=== PATIENT | female | born 1965 | race American Indian/Alaskan Native ===

== ENCOUNTER 2017-03-07 18:55 | Emergency (ER) | payer MEDICAID ==
[2017-03-07 19:19] VITALS: BP 153/87; PULSE 86; RESP 18; TEMP 98.4; O2SAT 100
--- NOTE | 2017-03-07 19:50 | C.PDOC ---
History Of Present Illness 51 yr old female presents to the ER with complaints of left ear pain, nasal congestion and frontal headache for the past 3 days. Patient reports past history of sinusitis. Denies fever, chills, nausea, vomiting or neck pain. Time Seen by Provider: 03/07/17 19:33 Chief Complaint (Nursing): ENT Problem History Per: Patient History/Exam Limitations: None Onset/Duration Of Symptoms: Days (3) Current Symptoms Are (Timing): Still Present Past Medical History Reviewed: Historical Data, Nursing Documentation, Vital Signs Vital Signs: Last Vital Signs Temp 98.4 F 03/07/17 19:16 Pulse 86 03/07/17 19:16 Resp 18 03/07/17 19:16 BP 153/87 H 03/07/17 19:16 Pulse Ox 100 03/07/17 20:24 - Medical History PMH: Asthma, Depression, HTN Surgical History: Cholecystectomy Family History: States: No Known Family Hx - Social History Hx Tobacco Use: Yes (1/2 PACK/DAY) Hx Alcohol Use: No Hx Substance Use: No - Immunization History Hx Tetanus Toxoid Vaccination: No Hx Influenza Vaccination: No Hx Pneumococcal Vaccination: No Review Of Systems Except As Marked, All Systems Reviewed And Found Negative. Constitutional: Negative for: Fever, Chills ENT: Positive for: Ear Pain (Left ear ), Nose Congestion Gastrointestinal: Negative for: Nausea, Vomiting Musculoskeletal: Negative for: Neck Pain Neurological: Positive for: Headache (Frontal ) Physical Exam - Physical Exam Appears: Non-toxic, No Acute Distress Skin: Warm, Dry, No Rash Head: Atraumatic, Normacephalic, Other ((+) Frontal sinus tenderness. ) Eye(s): bilateral: Normal Inspection, PERRL Ear(s): Left: TM Dull, Other (Bulging TM. ), Right: Normal Nose: Normal Oral Mucosa: Moist Throat: Normal, No Erythema Neck: Normal, Normal ROM, Supple Lymphatic: No Adenopathy Neurological/Psych: Oriented x3, Normal Speech ED Course And Treatment O2 Sat by Pulse Oximetry: 100 (RA ) Pulse Ox Interpretation: Normal Disposition Counseled Patient/Family Regarding: Diagnosis, Need For Followup, Rx Given - Disposition Referrals: Darci Lane MD [Staff Provider] - Disposition: HOME/ ROUTINE Disposition Time: 19:46 Condition: STABLE Additional Instructions: Take all meds prescribed Follow up with PMD or ENT Return to ER if worse Prescriptions: Amoxicillin/Clavulanate [Augmentin 875 MG-125 MG] 1 tab PO BID #14 tab Cetirizine HCl [Zyrtec] 10 mg PO DAILY #20 capsule Ibuprofen [Motrin] 600 mg PO Q6H #20 tab Instructions: Sinusitis (ED), Otitis Media (ED) Forms: [employer] (Greek) - Clinical Impression Clinical Impression: Otalgia of left ear, Sinusitis - PA / DIRECTOR OF MEDICAL SERVICES / Resident Statement MD/DO has reviewed & agrees with the documentation as recorded. - Scribe Statement The provider has reviewed the documentation as recorded by the Scribe Jennifer Allison All medical record entries made by the [employer] were at my direction and personally dictated by me. I have reviewed the chart and agree that the record accurately reflects my personal performance of the history, physical exam, medical decision making, and the department course for this patient. I have also personally directed, reviewed, and agree with the discharge instructions and disposition.
== END 2017-03-07 19:55 | disposition home or self-care (01) ==
LOC: C.ER 18:55
DX: H92.02 Otalgia, left ear (principal); J32.9 Chronic sinusitis, unspecified; Z72.0 Tobacco use